=== PATIENT | male | born 1995 | race Two or more races ===

== ENCOUNTER 2023-09-09 13:34 | Emergency (ER) | payer OTHER, SELFPAY ==
[2023-09-09 13:34] VITALS: BP 146/86; PULSE 104; RESP 18; TEMP 36.9; O2SAT 97
[2023-09-09 13:40] VITALS: RESP 20
--- NOTE | 2023-09-09 13:52 | PC.NURSE ---
Provider in room with patient
[2023-09-09] MEDS: LIDOCAINE HCL 1% LOCAL INJ 10 ML VIAL INFILTRATE (14:23)
[2023-09-09] MEDS: KETOROLAC (*BKC) 60 MG/2 ML VIAL IM (14:32)
[2023-09-09] MEDS: TETANUS,DIPHTHERIA,AC PERTUSSIS ADULT 0.5 ML (ADACEL) IM (14:32)
[2023-09-09] MEDS: NEOMYCIN/POLYMYXIN/BACITRACIN OINTMENT PACKET 1 PACKET TOPICAL (14:35)
--- NOTE | 2023-09-09 14:35 | ED.WOUNDLAC ---
HPI - Wound/Laceration General Chief Complaint: Wound/Laceration Stated Complaint: LACERATION Source: patient Mode of arrival: ambulatory Limitations: no limitations History of Present Illness HPI narrative: has a laceration to the pad of his left ring finger gaping not up-to-date with his tetanus currently no numbness or tingling has good range of motion in his left finger and hand. No other injuries noted. Onset (ago): hour(s) Place: work Context: accidental Related Data Home Medications Medication Instructions Recorded Confirmed albuterol sulfate 2.5 mg/3 mL 2.5 mg continuous nebulization 09/09/23 09/09/23 (0.083 %) solution for nebulization DAILY albuterol sulfate 90 mcg/actuation 90 mcg inhalation DAILY 09/09/23 09/09/23 aerosol inhaler budesonide-formoterol HFA 160 160 puff inhalation DAILY 09/09/23 09/09/23 mcg-4.5 mcg/actuation aerosol inhaler (Symbicort) Allergies Allergy/AdvReac Type Severity Reaction Status Date / Time No Known Allergies Allergy Verified 09/09/23 13:54 Review of Systems Review of Systems: All systems reviewed & are unremarkable except as noted in HPI and below PMFSH Past Medical History Medical History Patient denies medical problems Exam Const: General: healthy appearing and no acute distress Nutritional Appearance: well nourished Orientation/consciousness: patient oriented x3 Limitations: no limitations Resp: Effort & Inspection: normal respiratory effort Auscultation: clear to auscultation bilaterally Cardio: Rate: regular rate Rhythm: regular rhythm Skin: Other: laceration to the palmar surface of his left ring finger gaping approximately 2.5cm in length Neuro: General: patient oriented x3 and moves all extremities Extrem: General: normal to inspection Course Vital Signs Vital signs: Vital Signs Temperature 36.9 C 09/09/23 13:34 Pulse Rate 104 H 09/09/23 13:34 Respiratory Rate 18 09/09/23 13:34 Blood Pressure 146/86 H 09/09/23 13:34 Pulse Oximetry 97 09/09/23 13:34 Oxygen Delivery Room Air 09/09/23 13:34 Temperature 36.9 C 09/09/23 13:34 Pulse Rate 104 H 09/09/23 13:34 Respiratory Rate 20 09/09/23 13:40 Blood Pressure 146/86 H 09/09/23 13:34 Pulse Oximetry 97 09/09/23 13:34 Oxygen Delivery Room Air 09/09/23 13:34 Procedures Laceration Laceration 1: Date: 09/09/23 Time: 14:37 Site: hand Side (If applicable): left Size (cm): 2.5 Description: linear Depth: simple, single layer Local Anesthetic: lidocaine 1% Pre-repair: wound explored and irrigated ====== Skin Level ====== Skin layer closed with: vicryl Size (cm): 4-0 Number of sutures: 5 Technique: simple, interrupted ====== Subcutaneous Layer ====== ====== Muscle Layer ====== ====== Tendon Layer ====== Critical Care Time Critical Care Time Critical Care Time: No Discharge Plan Discharge Clinical Impression: Laceration Patient Disposition: Home, Self-Care Condition: Stable Instructions: Antibiotic Form, Laceration (ED) Additional Instructions: Take medicine as prescribed, and follow with primary to have sutures removed in 1 week. Prescriptions: New naproxen 500 mg tablet 500 mg PO BID PRN (Reason: pain) Qty: 14 0RF No Action albuterol sulfate 2.5 mg /3 mL (0.083 %) solution for nebulization 2.5 mg continuous nebulization DAILY albuterol sulfate 90 mcg/actuation HFA aerosol inhaler 90 mcg INHALATION DAILY budesonide-formoterol [Symbicort] 160-4.5 mcg/actuation HFA aerosol inhaler 160 puff INHALATION DAILY Follow-up/Referrals: UNKNOWN,DOCTOR [Primary Care Provider] - Time of Disposition: 14:41
[2023-09-09 14:53] VITALS: BP 146/81; PULSE 78; RESP 20; O2SAT 98
== END 2023-09-09 14:53 | disposition home or self-care (01) ==
LOC: CHSED 14:48
PROVIDERS: Emergency Provider Emergency Medicine; PCP Nurse Practitioner
DX: S61.215A Laceration without foreign body of left ring finger without damage to nail, initial encounter (principal); Z79.51 Long term (current) use of inhaled steroids; W45.8XXA Other foreign body or object entering through skin, initial encounter; Z23 Encounter for immunization
CPT/HCPCS: 12001; 90471; 90715; 96372; 99283; J1885

== ENCOUNTER 2024-03-12 21:44 | Emergency (ER) | payer SELFPAY ==
--- NOTE | ~2024-03-12 | XR_ITS ---
Clinical Indication: Shortness of breath PA and lateral views of the chest: Comparison: None Findings: Questionable subtle 5 mm right midlung nodular opacity. Left lung clear.. Cardiomediastina l silhouette is within normal limits. Bones and soft tissues are unremarkable. Impression: Questionable subtle 5 mm right midlung nodular opacity. Consider chest CT to further evaluate versus follow-up exam. Reviewed, dictated and finalized at location . Impression: Questionable subtle 5 mm right midlung nodular opacity. Consider chest CT to fu rther evaluate versus follow-up exam.
[2024-03-12 21:47] VITALS: BP 117/81; PULSE 90; RESP 18; TEMP 36.7; O2SAT 99
--- NOTE | 2024-03-12 21:53 | ED.URI ---
HPI - URI/Sore Throat General Chief Complaint: Upper Respiratory Infection Stated Complaint: upper respiratory Source: patient Mode of arrival: ambulatory Limitations: no limitations History of Present Illness HPI Narrative: Patient is a 28-year-old male with asthma out of some of his medications and nebulizer tubing. He has been sick for the past few days. No fever. He has been short of breath and coughing. He feels that he has a bronchitis type illness. He has been seeing his child at a children[facility] hospital. MD elicited complaint: cough Pertinent past history: asthma Onset (ago): day(s) (3) Consistency: constant Severity: moderate Pain scale (0-10): 2 Description of mucous: clear and yellow Able to tolerate fluids by mouth: Yes Exacerbating factors: exertion, deep breaths and other ( Out of his home nebulizer tubing and said he came to the ER for tubing as well today) Relieving factors: nothing Context: sick contacts ( child is at a children's hospital and he was there in the past few days) Associated symptoms: shortness of breath Treatments prior to arrival: none Related Data Home Medications Medication Instructions Recorded Confirmed albuterol sulfate 2.5 mg/3 mL 2.5 mg continuous nebulization 09/09/23 03/12/24 (0.083 %) solution for nebulization DAILY albuterol sulfate 90 mcg/actuation 90 mcg inhalation DAILY 09/09/23 03/12/24 aerosol inhaler budesonide-formoterol HFA 160 160 puff inhalation DAILY 09/09/23 03/12/24 mcg-4.5 mcg/actuation aerosol inhaler (Symbicort) Allergies Allergy/AdvReac Type Severity Reaction Status Date / Time ibuprofen AdvReac Nausea Verified 03/12/24 21:52 Review of Systems Review of Systems: All systems reviewed & are unremarkable except as noted in HPI and below Constitutional: Constitutional: Reports no additional constitutional complaints Eyes: Eyes: Reports no additional eye complaints ENT: Reports system reviewed and no additional complaints, except as documented Cardiovascular: Cardiovascular: Reports no additional cardiovascular complaints Respiratory: Respiratory: Reports no additional respiratory complaints Gastrointestinal: Gastrointestinal: Reports no additional gastrointestinal complaints Genitourinary: Genitourinary: Reports no additional male genitourinary complaints Musculoskeletal: Musculoskeletal: Reports no additional musculoskeletal complaints Integumentary/Breasts: Skin/Breast: Reports system reviewed and no additional complaints, except as docu Neurologic: Reports system reviewed and no additional complaints, except as documented Psychiatric: Psychiatric: Reports no additional psychiatric complaints Endocrine: Endocrine: Reports no additional endocrine complaints Hematologic/Lymphatic: Hematologic/Lymphatic: Reports no additional hematologic/lymphatic complaints Allergic/Immunologic: Allergic/Immunologic: Reports no additional allergic/immunologic complaints PMFSH Past Medical History Medical History Patient denies medical problems Exam Const: General: healthy appearing Nutritional Appearance: well nourished Orientation/consciousness: patient oriented x3 HENMT: Head: normal to inspection Ears: external ears normal Face/Nose/Sinus: Normal external nose present Eyes: Conjunctivae: conjunctivae normal Pupils: Equal, round and reactive pupils present EOM: EOMs intact bilaterally Neck: Neck: normal visual inspection Chest: Chest palpation & inspection: normal inspection of the chest Resp: Effort & Inspection: normal respiratory effort and not labored Auscultation: not clear to auscultation bilaterally, crackles on the right at the base, no rales, no rhonchi, no wheezes, breath sounds present and diminished lung sounds bilateral Cardio: Rate: regular rate Rhythm: regular rhythm Heart sounds: no murmurs GI: Inspection: non-distended GI Palp: Yes Soft to palpation and No Tenderness to palpation present (GI) Auscultation: normal bowel sounds : General: Yes bladder normal to palpation Back/Spine/Pelvis: Back: no CVA tenderness Skin: General skin exam: normal color Rashes: no rashes Wounds: no wounds Neuro: General: patient oriented x3 Cranial nerves: Yes Nystagmus not present Speech: normal speech Extrem: General: normal to inspection Psych: Mental Status: mental status grossly normal Affect: normal affect Attitude: cooperative Course Vital Signs Vital signs: Vital Signs Oxygen Delivery Room Air 03/12/24 21:44 Temperature 36.7 C 03/12/24 21:47 Pulse Rate 71 03/12/24 22:31 Respiratory Rate 16 03/12/24 22:31 Blood Pressure 126/82 03/12/24 22:30 Pulse Oximetry 100 03/12/24 22:31 Oxygen Delivery Room Air 03/12/24 22:30 Oxygen Flow Rate 7 03/12/24 22:31 MDM - URI/Sore Throat MDM Narrative Medical decision making narrative: Patient is a 28-year-old male with asthma and out of his medications. We will give treatment and do a chest x-ray. Imaging Data Attestation: I personally reviewed and interpreted this imaging study as follows: Radiologist's impression: Chest x-ray shows some bilateral with right greater than left increased perihilar markings Discharge Plan Discharge Clinical Impression: Asthma exacerbation Qualifiers: Asthma severity: moderate Asthma persistence: unspecified Qualified Code(s): J45.901 - Unspecified asthma with (acute) exacerbation Patient Disposition: Home, Self-Care Condition: Stable Instructions: Antibiotic Form, Asthma (ED) Prescriptions: New azithromycin 500 mg tablet 500 mg PO DAILY 4 Days Qty: 4 0RF albuterol sulfate 90 mcg/actuation HFA aerosol inhaler 2 inh inhalation Q4H PRN (Reason: shortness of breath or wheezing) Qty: 6.7 0RF budesonide-formoterol [Symbicort] 160-4.5 mcg/actuation HFA aerosol inhaler 1 inh inhalation DAILY Qty: 10.2 0RF methylprednisolone [Medrol (Ra)] 4 mg tablets,dose pack See Rx Instructions .ROUTE .COMPLEX Qty: 21 0RF Rx Instructions: orally per package directions No Action albuterol sulfate 2.5 mg /3 mL (0.083 %) solution for nebulization 2.5 mg continuous nebulization DAILY albuterol sulfate 90 mcg/actuation HFA aerosol inhaler 90 mcg INHALATION DAILY budesonide-formoterol [Symbicort] 160-4.5 mcg/actuation HFA aerosol inhaler 160 puff INHALATION DAILY Follow-up/Referrals: UNKNOWN,DOCTOR [Non-Staff] - Time of Disposition: 22:42
[2024-03-12] MEDS: methylPREDNISolone SOD SUCC 125 MG VIAL IM (22:14)
[2024-03-12] MEDS: ALBUTEROL SULFATE NEB 2.5 MG/3 ML INH INHALATION (22:14)
[2024-03-12 22:20] VITALS: BP 122/76; PULSE 83; RESP 16; O2SAT 100
[2024-03-12 22:30] VITALS: BP 126/82; PULSE 71; RESP 16; O2SAT 100
[2024-03-12 22:31] VITALS: PULSE 71; RESP 16; O2SAT 100
[2024-03-12] MEDS: AZITHROMYCIN 250 MG TABLET 500 MG PO (22:58)
== END 2024-03-12 23:03 | disposition home or self-care (01) ==
PROVIDERS: Emergency Provider Emergency Medicine
DX: J45.901 Unspecified asthma with (acute) exacerbation (principal)
CPT/HCPCS: 71046; 96372; 99283; A9270; J2919

== ENCOUNTER 2024-04-07 23:55 | Emergency (ER) | payer OTHER, SELFPAY ==
--- NOTE | ~2024-04-07 | XR_ITS ---
EXAMINATION: XR chest 2V DATE: 04/08/2024 00:20 INDICATION: Right-sided chest pain with cough and wheezing TECHNIQUE: PA and lateral views of the chest were obtained. COMPARISON: Chest radiograph dated 03/12/24 FINDINGS: Persistent nodule in the anterior right midlung zone which given the density relative to size most li raegan represents a calcified granuloma. No other airspace opacities, pulmonary edema, pleural effusion or pneumothorax. The cardiomediastinal silhouette is normal. Visualized bones and soft tissues are u nremarkable. IMPRESSION: 1. No acute cardiopulmonary disease. Reviewed, dictated and finalized at location A. GNER WRITER
[2024-04-07 23:57] VITALS: BP 131/84; PULSE 89; RESP 18; TEMP 36.2; O2SAT 98
--- NOTE | 2024-04-08 00:08 | ED.GENADULT ---
HPI - General Adult General Chief complaint: Upper Respiratory Infection Stated complaint: upper respiratory Source: patient Mode of arrival: ambulatory Limitations: no limitations History of Present Illness HPI narrative: Patient is a 28-year-old white male asthmatic stated he was here on the he thought he might be getting a pneumonia. Patient was in the ED March 12 with the asthma exacerbation complaining of shortness of breath and coughing is out of his asthma medicine and nebulizer tubing.? At that time he had normal vital signs nonlabored breathing it crackles at the right base and bilateral diminished breath sounds. ?Chest x-ray showed a questionable subtle subtle 5 mm right mid lung field nodular opacity consideration was a chest x-ray to further evaluate versus follow-up exam. He is given a Z-Ra albuterol inhaler Symbicort inhaler and a Medrol Dosepak.? Patient states he did not take the last dose of his a Zithromax and he has been abusing his albuterol inhaler taking 2 puffs every 30-45 minutes today.? Been taking Tylenol yesterday but nothing today for pain.? He complains of back right posterior chest pain aggravated by coughing. Otherwise he has been eating drinking voiding and stooling fine without any fever dizziness lightheadedness swelling lumps or bumps rash or itching bleeding or bruising or any other complaints. Related Data Allergies Allergy/AdvReac Type Severity Reaction Status Date / Time ibuprofen AdvReac Nausea Verified 04/08/24 00:07 Review of Systems Review of Systems: All systems reviewed & are unremarkable except as noted in HPI and below PMFSH Past Medical History Medical History Patient denies medical problems Exam Narrative: White male patient with no apparent distress.? Did have a spasm of cough with some back pain at 1 point. Head normocephalic, atraumatic.? Eyes conjunctiva pink sclera nonicteric.? Extraocular movements are intact.? Ears externally normal.? Oropharynx is clear with moist mucous membranes without exudates.? Neck is supple nontender no lymphadenopathy.? Back is nontender.? Lungs are clear With fair air exchange no wheezes rales or rhonchi.? Heart is regular rate and rhythm without murmurs gallops or rubs.? Chest wall nontender. Abdomen is soft and nontender no hepatosplenomegaly or masses no CVA tenderness no abdominal bruits.? Extremities no cyanosis clubbing or edema.? Skin is warm and dry without rashes or lesions.? Neurological patient is alert and oriented x4.? Motor and sensory grossly intact.? Gait is normal. Course Vital Signs Vital signs: Vital Signs Oxygen Delivery Room Air 04/07/24 23:55 Temperature 36.2 C L 04/07/24 23:57 Pulse Rate 89 04/07/24 23:57 Respiratory Rate 18 04/07/24 23:57 Blood Pressure 131/84 04/07/24 23:57 Pulse Oximetry 99 04/08/24 01:19 Oxygen Delivery Room Air 04/07/24 23:57 Oxygen Flow Rate 6 04/08/24 01:07 Medical Decision Making MDM Narrative Medical decision making narrative: ?Patient placed in room: 2 with his ? History and physical was performed. all patient's PERC criteria negative his score 0 no further testing for PE is indicated Independent Historian: had nothing to add External Source Review: last ED visit were reviewed as were his chest x-ray report an actual film Differential Dx includes but not limited to: pneumonia PE pleuritis muscle pain asthma exacerbation Medications were Reviewed: home meds reviewed Medications given: DuoNebs prednisone 60 mg Independently Interpreted by me: chest x-ray showed no active disease as independently interpreted by me. Shared decision Making: Evaluation was discussed with patient his all questions were asked and answered and patient reluctant to quit smoking, quit vaping, and quit smoking marijuana. Will give him a longer tapering course of prednisone. Hopefully patient will follow-up with 1 of the physicians locally. Social Situation Impacting Patients Care: Patient continues to vape smoke and smoke marijuana DISCHARGE DIAGNOSIS: asthma exacerbation DISPOSITION : discharge home CONDITION AT DISCHARGE: stable Vital Signs Vital Signs: Vital Signs Oxygen Delivery Room Air 04/07/24 23:55 Temperature 36.2 C L 04/07/24 23:57 Pulse Rate 89 04/07/24 23:57 Respiratory Rate 18 04/07/24 23:57 Blood Pressure 131/84 04/07/24 23:57 Pulse Oximetry 99 04/08/24 01:19 Oxygen Delivery Room Air 04/07/24 23:57 Oxygen Flow Rate 6 04/08/24 01:07 Discharge Plan Discharge Clinical Impression: Asthma exacerbation, Nicotine addiction, Marijuana abuse Patient Disposition: Home, Self-Care Condition: Stable Instructions: Asthma in Children (ED), How to Use a Nebulizer (ED) Additional Instructions: take prednisone 5 mg tablet: 8 tablets daily for 5 days then 4 tablets daily for 5 days, then 2 tablets daily for 5 days, then 1 tablet daily for 5 days. Stop smoking and vaping and smoking marijuana. Take Tylenol and/or Naprosyn [id number] and or soak in warm tub for pain as needed. Prescriptions: New prednisone 5 mg tablet 5 mg PO DIRECTED Qty: 75 0RF Rx Instructions: see taper instructions: Take 40 mg daily for 5 days then 20 mg daily for 5 days then 10 mg daily for 5 days and 5 mg daily for 5 days No Action albuterol sulfate 90 mcg/actuation HFA aerosol inhaler 2 inh inhalation Q4H PRN (Reason: shortness of breath or wheezing) Qty: 6.7 0RF budesonide-formoterol [Symbicort] 160-4.5 mcg/actuation HFA aerosol inhaler 1 inh inhalation DAILY Qty: 10.2 0RF Follow-up/Referrals: UNKNOWN,DOCTOR [Primary Care Provider] - Stand Alone Forms: Work/School Release IP Time of Disposition: 01:39
[2024-04-08] MEDS: KETOROLAC 30 MG/ML VIAL (*BKC) IM (01:00)
[2024-04-08] MEDS: IPRATROPIUM 0.5 MG/ALBUTEROL SULFATE 2.5 MG AMPUL.NEB 3 ML INHALATION (01:01)
[2024-04-08] MEDS: predniSONE 20 MG TABLET 60 MG PO (01:02)
[2024-04-08 01:07] VITALS: O2SAT 98
[2024-04-08 01:17] VITALS: O2SAT 99
[2024-04-08 01:19] VITALS: O2SAT 99
[2024-04-08 01:45] VITALS: BP 132/82; PULSE 92; RESP 17; TEMP 36.8; O2SAT 99
== END 2024-04-08 01:45 | disposition home or self-care (01) ==
PROVIDERS: Emergency Provider Emergency Medicine
DX: J45.901 Unspecified asthma with (acute) exacerbation (principal); F12.10 Cannabis abuse, uncomplicated
CPT/HCPCS: 71046; 94640; 96372; 99283; J1885; J7512

== ENCOUNTER 2024-05-03 05:28 | Emergency (ER) | payer OTHER, SELFPAY ==
[2024-05-03 05:28] VITALS: BP 127/85; PULSE 102; RESP 24; TEMP 36.6; O2SAT 95
--- NOTE | 2024-05-03 05:45 | ED_ITS ---
HPI - Asthma General Chief Complaint: Asthma Stated Complaint: Asthma Time Seen by Provider: 05/03/24 05:43 History of Present Illness HPI Narrative: Pt presents with SOB/wheezing. Pt is asthmatic and is out of inhaler and does not have a PCP yet locally. Pt denies cough or fever. Related Data Allergies Allergy/AdvReac Type Severity Reaction Status Date / Time ibuprofen AdvReac Nausea Verified 05/03/24 05:54 Review of Systems Review of Systems: All systems reviewed & are unremarkable except as noted in HPI and below PMFSH Past Medical History Medical History Patient denies medical problems Exam Const: General: healthy appearing and no acute distress Nutritional Appearance: well nourished Orientation/consciousness: patient oriented x3 Limitations: no limitations Chest: Chest palpation & inspection: normal inspection of the chest Resp: Effort & Inspection: normal respiratory effort and tachypneic Auscultation: wheezes Cardio: Rate: regular rate Rhythm: regular rhythm GI: Auscultation: normal bowel sounds Skin: General skin exam: normal color Wounds: no wounds Neuro: General: patient oriented x3, moves all extremities and no focal motor deficits Speech: normal speech Extrem: General: normal to inspection and no clubbing, cyanosis or edema Psych: Mental Status: mental status grossly normal Affect: normal affect Attitude: cooperative Course Vital Signs Vital signs: Vital Signs Temperature 97.9 F 05/03/24 05:28 Pulse Rate 102 H 05/03/24 05:28 Respiratory Rate 24 H 05/03/24 05:28 Blood Pressure 127/85 05/03/24 05:28 Pulse Oximetry 95 05/03/24 05:28 Oxygen Delivery Room Air 05/03/24 05:28 Temperature 97.9 F 05/03/24 05:28 Pulse Rate 102 H 05/03/24 05:28 Respiratory Rate 24 H 05/03/24 05:28 Blood Pressure 127/85 05/03/24 05:28 Pulse Oximetry 95 05/03/24 05:28 Oxygen Delivery Room Air 05/03/24 05:28 MDM - Asthma MDM Narrative Medical decision making narrative: Pt presents with wheezing and is out of meds. Will give neb here and refill rx and likely also give short run of prednisone. Pt better after neb. home on inhaler and prednisone. Discharge Plan Discharge Clinical Impression: Asthma with acute exacerbation Patient Disposition: Home, Self-Care Condition: Improved Instructions: Antibiotic Form, Asthma (ED) Patient Language: Luxembourgish Prescriptions: New prednisone 50 mg tablet 50 mg PO DAILY Qty: 5 0RF albuterol sulfate [Ventolin HFA] 90 mcg/actuation HFA aerosol inhaler 2 puff inhalation QID PRN (Reason: shortness of breath or wheezing) Qty: 8.5 0RF budesonide-formoterol [Breyna] 80-4.5 mcg/actuation HFA aerosol inhaler 1 inh inhalation DAILY Qty: 10.2 0RF (DME) nebulizer and compressor Device See Rx Instructions .Route Qty: 1 0RF Rx Instructions: As directed albuterol sulfate 2.5 mg/0.5 mL solution for nebulization 5 mg inhalation QID PRN (Reason: shortness of breath or wheezing) Qty: 30 0RF No Action albuterol sulfate 90 mcg/actuation HFA aerosol inhaler 2 inh inhalation Q4H PRN (Reason: shortness of breath or wheezing) Qty: 6.7 0RF budesonide-formoterol [Symbicort] 160-4.5 mcg/actuation HFA aerosol inhaler 1 inh inhalation DAILY Qty: 10.2 0RF Follow-up/Referrals: Jose Munoz DO [Physician] - UNKNOWN,DOCTOR [Primary Care Provider] -
[2024-05-03] MEDS: IPRATROPIUM 0.5 MG/ALBUTEROL SULFATE 2.5 MG AMPUL.NEB 3 ML INHALATION (05:48)
[2024-05-03 05:58] VITALS: PULSE 84; RESP 20; O2SAT 97
[2024-05-03] MEDS: ACETAMINOPHEN 325 MG TABLET 650 MG PO (06:02)
[2024-05-03 06:08] VITALS: BP 120/91; PULSE 85; RESP 18; O2SAT 97
[2024-05-03 06:34] VITALS: BP 107/74; PULSE 81; RESP 20; O2SAT 97
== END 2024-05-03 07:05 | disposition home or self-care (01) ==
PROVIDERS: Emergency Provider Emergency Medicine
DX: J45.901 Unspecified asthma with (acute) exacerbation (principal)
CPT/HCPCS: 99283; A9270

== ENCOUNTER 2024-07-11 01:11 | Emergency (ER) | payer OTHER, SELFPAY ==
--- OUTSIDE RECORDS SUMMARY | 2024-07-11 01:14 | XMS_ITS | Clinical Summary ---
Author Organization [facility] Address [address] [place] [address] Care Team Providers Care [facility] Name Role Phone None, Provider Primary Care Provider Nicola Hicks MD Unavailable [phone] Allergies Active Allergy Reactions Criticality Noted Date Comments Ibuprofen Vomiting 09/09/2023 Medications albuterol (ACCUNEB) 0.63 MG/3ML nebulizer solution Take 1 ampule by nebulization every 6 (six) hours as needed for Wheezing. Active azithromycin (ZITHROMAX Z-CARMEN) 250 MG tablet Take 2 tabs on Day 1, then 1 tab on days 2-5 6 tablet 3 Active methylPREDNISol one, CARMEN, (MEDROL DOSEPAK) 4 MG tablet Take as directed 1 each 3 Active albuterol (PROVENTIL) (2.5 MG/3ML) 0.083% nebulizer solution Take 3 mLs (2.5 mg total) by nebulization every 4 (four) hours as needed for Wheezing. 75 mL 3 Active albuterol (ACCUNEB) 0.63 MG/3ML nebulizer solution Take 3 mLs (0.63 mg total) by nebulization every 6 (six) hours as needed for Wheezing. 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 [employer] Gender Identity Not on file Sexual Orientation Not on file Last Filed Vital Signs Vital Sign Reading Time Taken Comments Blood Pressure 149/86 09/09/2023 9:40 PM CDT Pulse 94 09/09/2023 9:40 PM CDT Temperature 36.3 C (97.4 F) 09/09/2023 9:40 PM CDT Respiratory Rate 24 09/09/2023 9:40 PM CDT Oxygen Saturation 100% 09/09/2023 9:40 PM CDT Inhaled Oxygen Concentration - - Weight 75 kg (165 lb 5.5 oz) 09/09/2023 9:45 PM CDT Height 160 cm (5' 3 ) 09/09/2023 9:45 PM CDT Body Mass Index 29.29 09/09/2023 9:45 PM CDT Plan of Treatment Health Maintenance Due Date Last Done Comments Annual Physical 2000 Pneumococcal Vaccine: Pediatrics (0 to 5 Years) and At-Risk Patients (6 to 64 Years) (1 of 2 - PCV) 2003 DTaP, Tdap and Td Vaccines (6 - Tdap) 2008 01/31/2003, 08/27/1998, 02/14/1998, Additional history exists Hepatitis C 2015 COVID-19 Vaccine ( season) 2024 Influenza Adult (#1) 2024 Hepatitis B Vaccines Completed 08/27/1998, 1997, 1997 HPV Vaccines Aged Out No longer eligi ble based on patient's age to complete this topic Meningococcal B Vaccine Aged Out No l onger eligible based on patient's age to complete this topic Meningococcal Vaccine Aged Out No halie dinah eligible based on patient's age to complete this topic RSV Immunizations Under 20 Months Aged Out No longer eligible based on patient's age to complete this topic Insurance [employer] Care Teams [facility] Relationship Specialty Start Date End Date None, Provider, PCP - General UNKNOWN PHYSICIAN SPECIALTY 09/09/23 Nicola Harris MD [address] [place] [id number] FAMILY PRACTICE 09/09/23
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
[2024-07-11 01:16] VITALS: BP 114/86; PULSE 99; RESP 24; TEMP 36.6; O2SAT 99
--- NOTE | 2024-07-11 01:18 | ED_ITS ---
HPI - Asthma General Chief Complaint: Asthma Stated Complaint: SOB, dizzy, headache Time Seen by Provider: 07/11/24 01:13 Source: patient Mode of arrival: ambulatory Limitations: no limitations History of Present Illness HPI Narrative: This is a 29-year-old male with history of with multiple prior exacerbations who presents the emergency department complaining wheezing and shortness of breath. Patient states this is similar to prior asthma exacerbations. He states in the past week he has had a viral upper respiratory infection from his children. He denies chest pain, fevers, chills, loss of consciousness, nausea or vomiting. He has no other complaints at this time. Related Data Allergies Allergy/AdvReac Type Severity Reaction Status Date / Time ibuprofen AdvReac Nausea Verified 05/03/24 05:54 Review of Systems Review of Systems: All systems reviewed & are unremarkable except as noted in HPI and below PMFSH Past Medical History Medical History Asthma exacerbation Surgical History Surgical History No significant past surgical history Social History Social History Smoking status: Former smoker Alcohol intake: current Substance use: never Exam Narrative: GENERAL: Well-developed, well-nourished, and in no acute distress. HEAD: Normocephalic, atraumatic. EYES: PERRLA and EOMI. CHEST: Expiratory wheeze noted in the bilateral posterior lung talavera. No respiratory distress. No rales or rhonchi HEART: Regular rate and rhythm. No murmur heard. Normal peripheral pulses. ABDOMEN: Soft, nontender, nondistended, normal active bowel sounds. EXTREMITIES: Normal range of motion. No edema. SKIN: Warm, dry, no rash. NEURO: Alert and oriented x3. No focal deficit. Moving all 4 limbs spontaneously PSYCH: Normal mood and affect. Course Course Emergency Course: 01:54 - On re-evaluation after DuoNeb, the patient states he feels significantly improved and is comfortable with discharge. His wheezing has resolved. Will discharge her with refills albuterol and a prednisone course. I discussed the findings and recommendations with The patient. Discussed return and emergency precautions including signs/symptoms of ACS and respiratory distress. The patient voiced understanding and agreement with the plan. All questions answered to his satisfaction. Vital Signs Vital signs: Vital Signs Temperature 97.9 F 07/11/24 01:16 Pulse Rate 99 07/11/24 01:16 Respiratory Rate 24 H 07/11/24 01:16 Blood Pressure 114/86 07/11/24 01:16 Pulse Oximetry 99 07/11/24 01:16 Oxygen Delivery Room Air 07/11/24 01:16 Temperature 97.9 F 07/11/24 01:16 Pulse Rate 99 07/11/24 01:16 Respiratory Rate 24 H 07/11/24 01:16 Blood Pressure 114/86 07/11/24 01:16 Pulse Oximetry 99 07/11/24 01:16 Oxygen Delivery Room Air 07/11/24 01:16 MDM - Asthma MDM Narrative Medical decision making narrative: plan: Labs, steroids reassess Differential Diagnosis Differential diagnosis: Likely Acute exacerbation, Acute asthmatic bronchitis and other ( viral URI, other) Discharge Plan Discharge Clinical Impression: Asthma with acute exacerbation Qualifiers: Asthma severity: moderate Asthma persistence: persistent Qualified Code(s): J45.41 - Moderate persistent asthma with (acute) exacerbation Patient Disposition: Home, Self-Care Condition: Stable Instructions: Antibiotic Form Additional Instructions: You were seen in the emergency department. You were given a nebulizer treatment with improvement. I recommend a short course of steroids and follow- up with a primary care doctor. If you develop chest pain, new or worsening shortness of breath, or if you have other emergent concerns for life, limb, or eyesight, return to the emergency department. Patient Language: Singaporean Prescriptions: New prednisone 20 mg tablet 20 mg PO DAILY Qty: 4 0RF Continued albuterol sulfate 90 mcg/actuation HFA aerosol inhaler 2 inh inhalation Q4H PRN (Reason: shortness of breath or wheezing) Qty: 6.7 2RF albuterol sulfate 2.5 mg/0.5 mL solution for nebulization 5 mg inhalation QID PRN (Reason: shortness of breath or wheezing) Qty: 30 0RF budesonide-formoterol [Symbicort] 160-4.5 mcg/actuation HFA aerosol inhaler 1 inh inhalation DAILY Qty: 10.2 0RF No Action albuterol sulfate [Ventolin HFA] 90 mcg/actuation HFA aerosol inhaler 2 puff inhalation QID PRN (Reason: shortness of breath or wheezing) Qty: 8.5 0RF budesonide-formoterol [Breyna] 80-4.5 mcg/actuation HFA aerosol inhaler 1 inh inhalation DAILY Qty: 10.2 0RF (DME) nebulizer and compressor Device See Rx Instructions .Route Qty: 1 0RF Rx Instructions: As directed Follow-up/Referrals: Flavio Kelly M.D. [Primary Care Provider] - 1 Week Time of Disposition: 01:55
[2024-07-11] MEDS: predniSONE 20 MG TABLET 60 MG PO (01:29)
[2024-07-11] MEDS: IPRATROPIUM 0.5 MG/ALBUTEROL SULFATE 2.5 MG AMPUL.NEB 3 ML INHALATION (01:30)
[2024-07-11 01:40] VITALS: PULSE 88; RESP 24; O2SAT 98
--- OUTSIDE RECORDS SUMMARY | 2024-07-11 01:47 | XMS_ITS | Clinical Summary ---
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
--- OUTSIDE RECORDS SUMMARY | 2024-07-11 01:47 | XMS_ITS | Continuity of Care Document ---
Author Organization [employer] [facility] Address [address] [place] [address] Phone Care Team Providers Care Harvest Worker Fruit Name Role Phone Rubén Rea MD Unavailable [...] Diagnoses Date Provider Providers Copied on Encounter [facility], [address] [place] [address], [facility], tel: [phone] [facility] No Information 3 Álvaro Montana. [address] [place] [address], [address] [place] [address]. tel: [phone] [facility], [address] [place] [address], [facility], tel:[phone] [facility] No Information 2 Álvaro Montana. [address] [place] [address], [facility], . tel: [facility], [address] [place] [address], [facility], tel: [phone] [facility] No Information 2 Álvaro Montana. [address] [place] [address], [facility], . tel: [phone] [facility], [address] [place] [address], [facility], tel: [phone] [facility] No Information 1 Adolfoyasir Rubén. [address] [place] [address], [facility], . tel: [phone] PREV VISIT, EST, AGE 5-11 [facility], [address] [place] [address], [facility], tel: [phone] [facility] work note (chief complaint) Gastroenteritis Mood disorder 1 No Information PHONE E/M BY PHYS 11-20 MIN [facility], [address] [place] [address], [facility], tel: [phone] [facility] discuss medication (chief complaint) Mood disorder 1 Álvaro Montana. [address] [place] [address], [facility], . tel:[phone] PHONE E/M BY PHYS 11-20 MIN [facility], [address] [place] [address], [facility], tel: [phone] [facility] Medication follow up. (chief complaint) Mood disorder 3 0 Álvaro Montana. [address] [place] [address], [facility], . tel:[phone] OFFICE/OUTPA TIENT VISIT, [facility], [address] [place] [address], [facility], tel:[phone] [facility] 2 wk f/u (chief complaint) Mood disorder Jan- 0 Álvaro Montana. [address] [place] [address], [facility], . tel:[phone] OFFICE/OUTPA TIENT VISIT, [facility], [address] [place] [address], [facility], tel:[phone] [facility] F/U MED (chief complaint) Bipolar disorder, current episode mixed, mildMild asthma, unspecified whether complicated, unspecified whether persistentEncou nter for screening for cardiovascular disordersEncoun ter for screening for diabetes mellitus 0 Álvaro Montana. [address] [place] [address], [facility], . tel:[phone] [facility], [address] [place] [address], [facility], tel: [phone] [facility] No Information 0 Álvaro Montana. [address] [place] [address], [facility], . tel:[phone] OFFICE/OUTPA TIENT VISIT, [facility], [address] [place] [address], [facility], tel: [phone] [facility] 2 wk f/u (chief complaint) Bipolar disorder, current episode mixed, mild Feb- 0 Álvaro Montana. [address] [place] [address], [facility], [place]. tel:[phone] OFFICE/OUTPA TIENT VISIT, [facility], [address] [place] [address], [facility], tel:[phone] [facility] CHECK UP (chief complaint) Bipolar disorder, current episode mixed, mildMild asthma, unspecified whether complicated, unspecified whether persistentInsom nino, unspecified typeNicotine dependence, cigarettes, uncomplicatedDe ntal cariesHistory of methamphetamine abuse 0 Álvaro Montana. [address] [place] [address], [place], [address], [place]. [phone] OFFICE/OUTPA TIENT VISIT, [facility], [address] [place] [address], [place], [address], [place] tel:[phone] [facility] Establish Care (chief complaint) AsthmaNicotine dependence, cigarettes, [...] stroke Payers Payer name Insurance type Covered republican ID Authoriza tion(s) No Information Social History [...] Now here needing note to RTW at [facility] in [place]. Discussed with pt the need to be [...] the location of this Provider is at [address] The people participating in this Telemedicine [...] the location of this Provider is at [address]. The people participating in this Telemedicine were the patient , myself, LOCAL INTERMODAL TRUCK DRIVER Alfa Diaz and my nursing staff. The [...] had started a new job at [facility] [employer]. He states that he is working multiple [...] office. Patient states that he moved to [place] which is about half an hour from [...] would like to have this faxed to [facility]. 2 wk f/u Patient is F/U [...] a couple weeks. CHECK UP Patient is [facility] primary care to Dr. Rea. He has been seen here int he past but has not been compliant with treatment and follow up.Patient was seen in this office few years ago and has been back in this area. He was diagnosed to have Bipolar disorder and has been hospitalized 2X at [facility]. At the time, he was using Meth. [...] Establish Care Recently moved [place] from [place]. Has moved around a lot. Is on [...] during the day.Would like to join the [employer], but does not have a high school diploma.Discussed how and where to earn [employer] today to get established. Hx of asthma, [...] to Encounter for screening for diabetes mellitus Goal of treatment di scussed, observe for [...] o Bipolar disorder, current episode mixed, mild Avoid [...] to Encounter for screening for cardiovascular disorders Goal of treatment di scussed, observe for [...] o Bipolar disorder, current episode mixed, mild Encouraged coping ac tivities, counseling Related to Bipolar disorder, current episode mixed, mild Lamotrigine and duloxetine start ed Related to Bipolar disorder, current episode mixed, mild Follow up in two weeks Related t o Bipolar disorder, current episode mixed, mild Avoid respiratory ir ritants, smoking Related to Mild asthma, unspecified whether complicated, unspecified whether persistent Observe for worsenin g signs or symptoms Related to Mild asthma, unspecified whether complicated, unspecified whether persistent Use medications as i nstructed, observe for side effects Related to Mild asthma, unspecified whether complicated, unspecified whether persistent Rest, Proper nutriti on and activity. Weight management Related to Insomnia, unspecified type Consider Gabapentin vs Trazodone Related to Insomnia, unspecified type Observe for persiste nt or worsening symptoms Related to Insomnia, unspecified type Illness associated w ith continuing use discussed Related to Nicotine dependence, cigarettes, uncomplicated Contact Dental school Related to Dental caries Observe for s/s of emergency Rel ated to Dental caries Discussed the import ance of avoidance Related to History of methamphetamine abuse Illness associated w ith continuing use discussed Related to History of methamphetamine abuse Goal of treatment di scussed, observe for suicidal thoughts Related to Bipolar disorder, current episode mixed, mild Observe for medicati on side effect, Observe for worsening s/s Related to Bipolar disorder, current episode mixed, mild Refilled inhalers. D iscussed proper use Related to Asthma [facility] Related to Dental caries Assessments Type Assessment Date No Information Patient Care Teams Name Effective Dates (start - stop) Status Members No Information
[2024-07-11 01:50] VITALS: PULSE 82; RESP 20; O2SAT 99
[2024-07-11 02:00] VITALS: BP 123/70; PULSE 80; RESP 20; TEMP 36.6; O2SAT 99
== END 2024-07-11 02:00 | disposition home or self-care (01) ==
LOC: CHSED 01:45
PROVIDERS: Emergency Provider Preventive Medicine Aerospace Medicine; PCP Family Medicine
DX: J45.41 Moderate persistent asthma with (acute) exacerbation (principal); Z87.891 Personal history of nicotine dependence
CPT/HCPCS: 94640; 99283; J7512

== ENCOUNTER 2024-08-20 16:31 | Emergency (ER) | payer OTHER, SELFPAY ==
--- NOTE | ~2024-08-20 | XR_ITS ---
CHEST RADIOGRAPH, PA AND LATERAL CLINICAL HISTORY: sob/ intermittent Lt. sided chest pain . COMPARISON: 04/08/2024 TECHNIQUE: PA and lateral views of the chest. FINDINGS The cardiomediastinal silhouette is unremarkable. The lungs are clear. IMPRESSION: No focal infiltrate or effusion. Reviewed, dictated and finalized at location A.
[2024-08-20 16:32] VITALS: BP 130/88; PULSE 98; RESP 20; TEMP 36.3; O2SAT 97
--- NOTE | 2024-08-20 16:33 | ED.SOB ---
HPI - SOB/Dyspnea General Chief Complaint: Shortness of Breath/Dyspnea Stated Complaint: asthma Time Seen by Provider: 08/20/24 16:32 Source: patient and family Mode of arrival: ambulatory Limitations: no limitations History of Present Illness HPI Narrative: patient is a 29-year-old male who is currently homeless and not seeing a primary doctor and not using his Symbicort inhaler due to no refills here with asthma exacerbation. He is short of breath without chest pain. He just has his albuterol inhaler. MD elicited complaint: shortness of breath and cough Pertinent past history: asthma Onset (ago): day(s) ( Two) Context: other ( patient has asthma baseline and it has flared that he is off his Symbicort at this time and seasonal changes) Timing: constant Severity: moderate Exacerbating factors: nothing Relieving factors: bronchodilators and medication Known history of: asthma Associated symptoms: denies other symptoms Treatment prior to arrival: none Related Data Home oxygen amount: none Allergies Allergy/AdvReac Type Severity Reaction Status Date / Time ibuprofen AdvReac Nausea Verified 05/03/24 05:54 Review of Systems Review of Systems: All systems reviewed & are unremarkable except as noted in HPI and below Constitutional: Constitutional: Reports no additional constitutional complaints Eyes: Eyes: Reports no additional eye complaints ENT: Reports system reviewed and no additional complaints, except as documented Cardiovascular: Cardiovascular: Reports no additional cardiovascular complaints Respiratory: Respiratory: Reports no additional respiratory complaints Gastrointestinal: Gastrointestinal: Reports no additional gastrointestinal complaints Genitourinary: Genitourinary: Reports no additional male genitourinary complaints Musculoskeletal: Musculoskeletal: Reports no additional musculoskeletal complaints Integumentary/Breasts: Skin/Breast: Reports system reviewed and no additional complaints, except as docu Neurologic: Reports system reviewed and no additional complaints, except as documented Psychiatric: Psychiatric: Reports no additional psychiatric complaints Endocrine: Endocrine: Reports no additional endocrine complaints Hematologic/Lymphatic: Hematologic/Lymphatic: Reports no additional hematologic/lymphatic complaints Allergic/Immunologic: Allergic/Immunologic: Reports no additional allergic/immunologic complaints [facility] Past Medical History Medical History Asthma exacerbation Surgical History Surgical History No significant past surgical history Social History Social History Smoking status: Former smoker Alcohol intake: current Substance use: never Exam Const: General: healthy appearing Nutritional Appearance: well nourished Orientation/consciousness: patient oriented x3 Limitations: no limitations HENMT: Head: normal to inspection Ears: external ears normal Face/Nose/Sinus: Normal external nose present Eyes: Conjunctivae: conjunctivae normal Pupils: Equal, round and reactive pupils present EOM: EOMs intact bilaterally Neck: Neck: normal visual inspection Chest: Chest palpation & inspection: normal inspection of the chest Resp: Effort & Inspection: normal respiratory effort, not labored, no retractions, not tachypneic and no use of accessory muscles Auscultation: not clear to auscultation bilaterally, no crackles, no rales, rhonchi, wheezes, breath sounds present and diminished lung sounds Other: bilaterally Cardio: Rate: regular rate Rhythm: regular rhythm Heart sounds: no murmurs GI: Inspection: non-distended GI Palp: Yes Soft to palpation and No Tenderness to palpation present (GI) Auscultation: normal bowel sounds : General: Yes bladder normal to palpation Back/Spine/Pelvis: Back: no CVA tenderness Skin: General skin exam: normal color Rashes: no rashes Wounds: no wounds Neuro: General: patient oriented x3 Cranial nerves: Yes Nystagmus not present Speech: normal speech Gait exam (Neuro): Normal gait present Extrem: General: normal to inspection Psych: Mental Status: mental status grossly normal Affect: normal affect Attitude: cooperative Course Vital Signs Vital signs: Vital Signs Oxygen Delivery Room Air 08/20/24 16:31 Temperature 36.3 C L 08/20/24 16:32 Pulse Rate 98 08/20/24 16:32 Respiratory Rate 20 08/20/24 16:32 Blood Pressure 130/88 08/20/24 16:32 Pulse Oximetry 97 08/20/24 16:32 Oxygen Delivery Room Air 08/20/24 16:32 MDM - SOB/Dyspnea MDM Narrative Medical decision making narrative: patient is a 29-year-old male with asthma here with an exacerbation. We will get DuoNebs and steroids IM at this time. We will refill his Symbicort. We will do a COVID test panel. We will do a chest x-ray. Lab Data Attestation: I reviewed the patient's lab results. Labs: Lab Results 08/20/24 Range/Units 16:43 Influenza A (RT-PCR) Pending Influenza B (RT-PCR) Pending RSV (RT-PCR) Pending SARS-CoV-2 RNA (RT-PCR) Pending Imaging Data Attestation: I personally reviewed and interpreted this imaging study as follows: Radiologist's impression: Chest x-ray is negative for acute process Discharge Plan Discharge Clinical Impression: Asthma exacerbation Qualifiers: Asthma severity: moderate Asthma persistence: unspecified Qualified Code(s): J45.901 - Unspecified asthma with (acute) exacerbation Patient Disposition: Home, Self-Care Condition: Improved Instructions: Antibiotic Form, Asthma (ED) Patient Language: Gambian Prescriptions: New budesonide-formoterol [Symbicort] 80-4.5 mcg/actuation HFA aerosol inhaler 2 puff inhalation BID Qty: 10.2 0RF azithromycin 250 mg tablet See Rx Instructions .ROUTE .COMPLEX Qty: 6 0RF Rx Instructions: For 250 mg dose pack: take 500 mg today (day 1), then 250 mg for 4 days (days 2-5) No Action albuterol sulfate [Ventolin HFA] 90 mcg/actuation HFA aerosol inhaler 2 puff inhalation QID PRN (Reason: shortness of breath or wheezing) Qty: 8.5 0RF budesonide-formoterol [Breyna] 80-4.5 mcg/actuation HFA aerosol inhaler 1 inh inhalation DAILY Qty: 10.2 0RF (DME) nebulizer and compressor Device See Rx Instructions .Route Qty: 1 0RF Rx Instructions: As directed albuterol sulfate 90 mcg/actuation HFA aerosol inhaler 2 inh inhalation Q4H PRN (Reason: shortness of breath or wheezing) Qty: 6.7 2RF albuterol sulfate 2.5 mg/0.5 mL solution for nebulization 5 mg inhalation QID PRN (Reason: shortness of breath or wheezing) Qty: 30 0RF budesonide-formoterol [Symbicort] 160-4.5 mcg/actuation HFA aerosol inhaler 1 inh inhalation DAILY Qty: 10.2 0RF prednisone 20 mg tablet 20 mg PO DAILY Qty: 4 0RF Follow-up/Referrals: Lew Dunn MD [Primary Care Provider] - Time of Disposition: 17:25
--- OUTSIDE RECORDS SUMMARY | 2024-08-20 16:33 | XMS_ITS | Continuity of Care Document ---
Author Organization [employer] [facility] Address [address] [place] [address] Phone Care Team Providers Care Radio Officer Name Role Phone Rubén Rea MD Unavailable [...] Diagnoses Date Provider Providers Copied on Encounter [facility], [address] [place] [address], [facility], tel: [phone] [facility] No Information 3 Álvaro Montana. [address] [place] [address], [address] [place] [address]. tel: [phone] [facility], [address] [place] [address], [facility], tel:[phone] [facility] No Information 2 Álvaro Montana. [address] [place] [address], [facility], . tel: [facility], [address] [place] [address], [facility], tel: [phone] [facility] No Information 2 Álvaro Montana. [address] [place] [address], [facility], . tel: [phone] [facility], [address] [place] [address], [facility], tel: [phone] [facility] No Information 1 Adolfoyasir Rubén. [address] [place] [address], [facility], . tel: [phone] PREV VISIT, EST, AGE 5-11 [facility], [address] [place] [address], [facility], tel: [phone] [facility] work note (chief complaint) Gastroenteritis Mood disorder 1 No Information PHONE E/M BY PHYS 11-20 MIN [facility], [address] [place] [address], [facility], tel: [phone] [facility] discuss medication (chief complaint) Mood disorder 1 Álvaro Montana. [address] [place] [address], [facility], . tel:[phone] PHONE E/M BY PHYS 11-20 MIN [facility], [address] [place] [address], [facility], tel: [phone] [facility] Medication follow up. (chief complaint) Mood disorder 3 0 Álvaro Montana. [address] [place] [address], [facility], . tel:[phone] OFFICE/OUTPA TIENT VISIT, [facility], [address] [place] [address], [facility], tel:[phone] [facility] 2 wk f/u (chief complaint) Mood disorder Jan- 0 Álvaro Montana. [address] [place] [address], [facility], . tel:[phone] OFFICE/OUTPA TIENT VISIT, [facility], [address] [place] [address], [facility], tel:[phone] [facility] F/U MED (chief complaint) Bipolar disorder, current episode mixed, mildMild asthma, unspecified whether complicated, unspecified whether persistentEncou nter for screening for cardiovascular disordersEncoun ter for screening for diabetes mellitus 0 Álvaro Montana. [address] [place] [address], [facility], . tel:[phone] [facility], [address] [place] [address], [facility], tel: [phone] [facility] No Information 0 Álvaro Montana. [address] [place] [address], [facility], . tel:[phone] OFFICE/OUTPA TIENT VISIT, [facility], [address] [place] [address], [facility], tel: [phone] [facility] 2 wk f/u (chief complaint) Bipolar disorder, current episode mixed, mild Feb- 0 Álvaro Montana. [address] [place] [address], [facility], [place]. tel:[phone] OFFICE/OUTPA TIENT VISIT, [facility], [address] [place] [address], [facility], tel:[phone] [facility] CHECK UP (chief complaint) Bipolar disorder, current episode mixed, mildMild asthma, unspecified whether complicated, unspecified whether persistentInsom nino, unspecified typeNicotine dependence, cigarettes, uncomplicatedDe ntal cariesHistory of methamphetamine abuse 0 Álvaro Montana. [address] [place] [address], [place], [address], [place]. [phone] OFFICE/OUTPA TIENT VISIT, [facility], [address] [place] [address], [place], [address], [place] tel:[phone] [facility] Establish Care (chief complaint) AsthmaNicotine dependence, cigarettes, [...] Now here needing note to RTW at [facility] in [place]. Discussed with pt the need to be [...] the location of this Provider is at [address] The people participating in this Telemedicine [...] the location of this Provider is at [address] The people participating in this Telemedicine were the patient , myself, CLAIM ADJUSTER Alfa Diaz and my nursing staff. The [...] had started a new job at the [employer]. He states that he is working multiple [...] office. Patient states that he moved to [place] which is about half an hour from [...] would like to have this faxed to [facility]. 2 wk f/u Patient is F/U o [...] a couple weeks. CHECK UP Patient is [facility] primary care to Dr. Rea. He has been seen here int he past but has not been compliant with treatment and follow up.Patient was seen in this office few years ago and has been back in this area. He was diagnosed to have Bipolar disorder and has been hospitalized 2X at [facility]. At the time, he was using [...] Establish Care Recently moved [place] from [place]. Has moved around a lot. Is on [...] during the day.Would like to join the [employer], but does not have a high school diploma.Discussed how and where to earn [employer] today to get established. Hx of asthma, [...]
--- OUTSIDE RECORDS SUMMARY | 2024-08-20 16:33 | XMS_ITS | Clinical Summary ---
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
[2024-08-20] MEDS: IPRATROPIUM 0.5 MG/ALBUTEROL SULFATE 2.5 MG AMPUL.NEB 3 ML INHALATION (16:43)
[2024-08-20] MEDS: methylPREDNISolone SOD SUCC 125 MG VIAL IM (16:44)
--- OUTSIDE RECORDS SUMMARY | 2024-08-20 16:55 | XMS_ITS | Continuity of Care Document ---
Author Organization [facility] Address [address] [place] [address] Phone Care Team Providers Care Escalator Operator Name Role Phone Rubén Rea MD Unavailable [...] Diagnoses Date Provider Providers Copied on Encounter [facility], [address] [place] [address], [facility], tel: [phone] [facility] No Information 3 Álvaro Montana. [address] [place] [address], [address] [place] [address]. tel: [phone] [facility], [address] [place] [address], [facility], tel:[phone] [facility] No Information 2 Álvaro Montana. [address] [place] [address], [facility], . tel: [facility], [address] [place] [address], [facility], tel: [phone] [facility] No Information 2 Álvaro Montana. [address] [place] [address], [facility], . tel: [phone] [facility], [address] [place] [address], [facility], tel: [phone] [facility] No Information 1 Adolfoyasir Rubén. [address] [place] [address], [facility], . tel: [phone] PREV VISIT, EST, AGE 5-11 [facility], [address] [place] [address], [facility], tel: [phone] [facility] work note (chief complaint) Gastroenteritis Mood disorder 1 No Information PHONE E/M BY PHYS 11-20 MIN [facility], [address] [place] [address], [facility], tel: [phone] [facility] discuss medication (chief complaint) Mood disorder 1 Álvaro Montana. [address] [place] [address], [facility], . tel:[phone] PHONE E/M BY PHYS 11-20 MIN [facility], [address] [place] [address], [facility], tel: [phone] [facility] Medication follow up. (chief complaint) Mood disorder 3 0 Álvaro Montana. [address] [place] [address], [facility], . tel:[phone] OFFICE/OUTPA TIENT VISIT, [facility], [address] [place] [address], [facility], tel:[phone] [facility] 2 wk f/u (chief complaint) Mood disorder Jan- 0 Álvaro Montana. [address] [place] [address], [facility], . tel:[phone] OFFICE/OUTPA TIENT VISIT, [facility], [address] [place] [address], [facility], tel:[phone] [facility] F/U MED (chief complaint) Bipolar disorder, current episode mixed, mildMild asthma, unspecified whether complicated, unspecified whether persistentEncou nter for screening for cardiovascular disordersEncoun ter for screening for diabetes mellitus 0 Álvaro Montana. [address] [place] [address], [facility], . tel:[phone] [facility], [address] [place] [address], [facility], tel: [phone] [facility] No Information 0 Álvaro Montana. [address] [place] [address], [facility], . tel:[phone] OFFICE/OUTPA TIENT VISIT, [facility], [address] [place] [address], [facility], tel: [phone] [facility] 2 wk f/u (chief complaint) Bipolar disorder, current episode mixed, mild Feb- 0 Álvaro Montana. [address] [place] [address], [facility], [place]. tel:[phone] OFFICE/OUTPA TIENT VISIT, [facility], [address] [place] [address], [facility], tel:[phone] [facility] CHECK UP (chief complaint) Bipolar disorder, current episode mixed, mildMild asthma, unspecified whether complicated, unspecified whether persistentInsom nino, unspecified typeNicotine dependence, cigarettes, uncomplicatedDe ntal cariesHistory of methamphetamine abuse 0 Álvaro Montana. [address] [place] [address], [place], [address], [place]. [phone] OFFICE/OUTPA TIENT VISIT, [facility], [address] [place] [address], [place], [address], [place] tel:[phone] [facility] Establish Care (chief complaint) AsthmaNicotine dependence, [...] stroke Payers Payer name Insurance type Covered alliance party ID Authoriza tion(s) No Information Social History [...] Now here needing note to RTW at [facility] in [place]. Discussed with pt the need to be [...] location of this Provider is at [address] The people participating in this Telemedicine [...] location of this Provider is at [address]. The people participating in this Telemedicine were the patient , myself, ROCKBOARD LATHER Alfa Diaz and my nursing staff. The [...] had started a new job at the [employer]. He states that he is working multiple [...] office. Patient states that he moved to [place] which is about half an hour from [...] would like to have this faxed to [facility]. 2 wk f/u Patient is F/U [...] a couple weeks. CHECK UP Patient is [facility] primary care to Dr. Rea. He has been seen here int he past but has not been compliant with treatment and follow up.Patient was seen in this office few years ago and has been back in this area. He was diagnosed to have Bipolar disorder and has been hospitalized 2X at [facility]. At the time, he was using [...] Establish Care Recently moved [place] from [place]. Has moved around a lot. Is on [...] during the day.Would like to join the [employer], but does not have a high school diploma.Discussed how and where to earn [employer] today to get established. Hx of asthma, [...]
--- OUTSIDE RECORDS SUMMARY | 2024-08-20 16:55 | XMS_ITS | Clinical Summary ---
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
[2024-08-20 17:30] LABS: Influenza A QL RT-PCR Negative (Negative); Influenza B QL RT-PCR Negative (Negative); RSV RNA, RT-PCR Negative (Negative); SARS-CoV-2 RNA PCR Negative (Negative)
[2024-08-20 18:00] VITALS: BP 123/72; PULSE 72; RESP 18; O2SAT 100
== END 2024-08-20 18:00 | disposition home or self-care (01) ==
PROVIDERS: Emergency Provider Emergency Medicine; PCP Internal Medicine
DX: J45.901 Unspecified asthma with (acute) exacerbation (principal); Z59.00 Homelessness unspecified; Z87.891 Personal history of nicotine dependence; Z20.822 Contact with and (suspected) exposure to COVID-19
CPT/HCPCS: 71046; 87637; 96372; 99283; J2919

== ENCOUNTER 2024-10-19 03:57 | Emergency (ER) | payer OTHER, SELFPAY ==
[2024-10-19 03:58] VITALS: BP 136/96; PULSE 97; RESP 18; TEMP 36.1; O2SAT 97
--- OUTSIDE RECORDS SUMMARY | 2024-10-19 03:59 | XMS_ITS | Continuity of Care Document ---
Author Organization [facility] Address [address] [place] [address] Phone Care Team Providers Care Creosoting Engineer Name Role Phone Rubén Rea MD Unavailable [...] Diagnoses Date Provider Providers Copied on Encounter [facility], [address] [place] [address], [facility], tel: [phone] [facility] No Information 3 Álvaro Montana. [address] [place] [address], [address] [place] [address]. tel: [phone] [facility], [address] [place] [address], [facility], tel:[phone] [facility] No Information 2 Álvaro Montana. [address] [place] [address], [facility], . tel: [facility], [address] [place] [address], [facility], tel: [phone] [facility] No Information 2 Álvaro Montana. [address] [place] [address], [facility], . tel: [phone] [facility], [address] [place] [address], [facility], tel: [phone] [facility] No Information 1 Adolfoyasir Rubén. [address] [place] [address], [facility], . tel: [phone] PREV VISIT, EST, AGE 5-11 [facility], [address] [place] [address], [facility], tel: [phone] [facility] work note (chief complaint) Gastroenteritis Mood disorder 1 No Information PHONE E/M BY PHYS 11-20 MIN [facility], [address] [place] [address], [facility], tel: [phone] [facility] discuss medication (chief complaint) Mood disorder 1 Álvaro Montana. [address] [place] [address], [facility], . tel:[phone] PHONE E/M BY PHYS 11-20 MIN [facility], [address] [place] [address], [facility], tel: [phone] [facility] Medication follow up. (chief complaint) Mood disorder 3 0 Álvaro Montana. [address] [place] [address], [facility], . tel:[phone] OFFICE/OUTPA TIENT VISIT, [facility], [address] [place] [address], [facility], tel:[phone] [facility] 2 wk f/u (chief complaint) Mood disorder Jan- 0 Álvaro Montana. [address] [place] [address], [facility], . tel:[phone] OFFICE/OUTPA TIENT VISIT, [facility], [address] [place] [address], [facility], tel:[phone] [facility] F/U MED (chief complaint) Bipolar disorder, current episode mixed, mildMild asthma, unspecified whether complicated, unspecified whether persistentEncou nter for screening for cardiovascular disordersEncoun ter for screening for diabetes mellitus 0 Álvaro Montana. [address] [place] [address], [facility], . tel:[phone] [facility], [address] [place] [address], [facility], tel: [phone] [facility] No Information 0 Álvaro Montana. [address] [place] [address], [facility], . tel:[phone] OFFICE/OUTPA TIENT VISIT, [facility], [address] [place] [address], [facility], tel: [phone] [facility] 2 wk f/u (chief complaint) Bipolar disorder, current episode mixed, mild Feb- 0 Álvaro Montana. [address] [place] [address], [facility], [place]. tel:[phone] OFFICE/OUTPA TIENT VISIT, [facility], [address] [place] [address], [facility], tel:[phone] [facility] CHECK UP (chief complaint) Bipolar disorder, current episode mixed, mildMild asthma, unspecified whether complicated, unspecified whether persistentInsom nino, unspecified typeNicotine dependence, cigarettes, uncomplicatedDe ntal cariesHistory of methamphetamine abuse 0 Álvaro Montana. [address] [place] [address], [place], [address], [place]. [phone] OFFICE/OUTPA TIENT VISIT, [facility], [address] [place] [address], [place], [address], [place] tel:[phone] [facility] Establish Care (chief complaint) AsthmaNicotine dependence, [...] needing note to RTW at [facility] in [place]. Discussed with pt the need to be [...] the location of this Provider is at [address] The people participating in this Telemedicine [...] the location of this Provider is at [address] The people participating in this Telemedicine were the patient , myself, WREATH MAKER Alfa Diaz and my nursing staff. The [...] had started a new job at the [employer] He states that he is working multiple [...] office. Patient states that he moved to [place] which is about half an hour from [...] would like to have this faxed to [facility]. 2 wk f/u Patient is F/U o [...] a couple weeks. CHECK UP [facility] is [facility] primary care to Dr. Rea. He has been seen here int he past but has not been compliant with treatment and follow up.Patient was seen in this office few years ago and has been back in this area. He was diagnosed to have Bipolar disorder and has been hospitalized 2X at [facility]. At the time, he was using [...] during the day.Would like to join the [employer], but does not have a high school diploma.Discussed how and where to earn [employer] today to get established. Hx of asthma, now controlled, needs inhalers refilled Functional Status Date Functional Assessmen t No Information Instructions Date Instruction Additional Infor mg Advance diet as roberto carlos rated, RTW note given Related to Gastroenteritis Advised to continue with counseling, and see Dr. swain Related to Mood disorder Goal of treatment di scussed, observe for suicidal thoughts Related to Mood disorder Encouraged coping ac tivities, continue current regimen Related to Mood disorder Lab CBC CMP in one m ont recommended Related to Mood disorder Observe for medicati on side effect, Observe for worsening s/s Related to Mood disorder Goal of treatment [...] disorder, current episode mixed, mild Lamotrigine and [place] pro sent to pharmacy Related to Bipolar disorder, current episode mixed, mild Follow up in 2-3 weeks Related t o Bipolar disorder, current episode mixed, mild Benefit of exercise and weight management explained Related to Encounter for screening for cardiovascular disorders Avoid respiratory irritants Rela royal to Mild [...]
--- OUTSIDE RECORDS SUMMARY | 2024-10-19 04:04 | XMS_ITS | Continuity of Care Document ---
Author Organization [employer] Address [address] [place] [address] Phone Care Team Providers Care Corporate Representative Name Role Phone Rubén Rea MD Unavailable [...] Diagnoses Date Provider Providers Copied on Encounter [facility], [address] [place] [address], [facility], tel: [phone] [facility] No Information 3 Álvaro Montana. [address] [place] [address], [address] [place] [address]. tel: [phone] [facility], [address] [place] [address], [facility], tel:[phone] [facility] No Information 2 Álvaro Montana. [address] [place] [address], [facility], . tel: [facility], [address] [place] [address], [facility], tel: [phone] [facility] No Information 2 Álvaro Montana. [address] [place] [address], [facility], . tel: [phone] [facility], [address] [place] [address], [facility], tel: [phone] [facility] No Information 1 Adolfoyasir Rubén. [address] [place] [address], [facility], . tel: [phone] PREV VISIT, EST, AGE 5-11 [facility], [address] [place] [address], [facility], tel: [phone] [facility] work note (chief complaint) Gastroenteritis Mood disorder 1 No Information PHONE E/M BY PHYS 11-20 MIN [facility], [address] [place] [address], [facility], tel: [phone] [facility] discuss medication (chief complaint) Mood disorder 1 Álvaro Montana. [address] [place] [address], [facility], . tel:[phone] PHONE E/M BY PHYS 11-20 MIN [facility], [address] [place] [address], [facility], tel: [phone] [facility] Medication follow up. (chief complaint) Mood disorder 3 0 Álvaro Montana. [address] [place] [address], [facility], . tel:[phone] OFFICE/OUTPA TIENT VISIT, [facility], [address] [place] [address], [facility], tel:[phone] [facility] 2 wk f/u (chief complaint) Mood disorder Jan- 0 Álvaro Montana. [address] [place] [address], [facility], . tel:[phone] OFFICE/OUTPA TIENT VISIT, [facility], [address] [place] [address], [facility], tel:[phone] [facility] F/U MED (chief complaint) Bipolar disorder, current episode mixed, mildMild asthma, unspecified whether complicated, unspecified whether persistentEncou nter for screening for cardiovascular disordersEncoun ter for screening for diabetes mellitus 0 Álvaro Montana. [address] [place] [address], [facility], . tel:[phone] [facility], [address] [place] [address], [facility], tel: [phone] [facility] No Information 0 Álvaro Montana. [address] [place] [address], [facility], . tel:[phone] OFFICE/OUTPA TIENT VISIT, [facility], [address] [place] [address], [facility], tel: [phone] [facility] 2 wk f/u (chief complaint) Bipolar disorder, current episode mixed, mild Feb- 0 Álvaro Montana. [address] [place] [address], [facility], [place]. tel:[phone] OFFICE/OUTPA TIENT VISIT, [facility], [address] [place] [address], [facility], tel:[phone] [facility] CHECK UP (chief complaint) Bipolar disorder, current episode mixed, mildMild asthma, unspecified whether complicated, unspecified whether persistentInsom nino, unspecified typeNicotine dependence, cigarettes, uncomplicatedDe ntal cariesHistory of methamphetamine abuse 0 Álvaro Montana. [address] [place] [address], [place], [address], [place]. [phone] OFFICE/OUTPA TIENT VISIT, [facility], [address] [place] [address], [place], [address], [place] tel:[phone] [facility] Establish Care (chief complaint) AsthmaNicotine dependence, [...] Now here needing note to RTW at [facility] in [place]. Discussed with pt the need to be [...] the location of this Provider is at [address] The people participating in this Telemedicine [...] the location of this Provider is at [address]. The people participating in this Telemedicine were the patient , myself, CON[employer]IBLE [employer] BEDSPRING TESTER Alfa Diaz and my nursing staff. The [...] had started a new job at the [employer]. He states that he is working multiple [...] office. Patient states that he moved to [place] which is about half an hour from [...] would like to have this faxed to [facility]. 2 wk f/u Patient [...] a couple weeks. CHECK UP Patient is [facility] primary care to Dr. Rea. He has been seen here int he past but has not been compliant with treatment and follow up.Patient was seen in this office few years ago and has been back in this area. He was diagnosed to have Bipolar disorder and has been hospitalized 2X at [facility]. At the time, he was using [...] Establish Care Recently moved [place] from [place]. Has moved around a lot. Is on [...] during the day.Would like to join the [employer], but does not have a high school diploma.Discussed how and where to earn [employer] today to get established. Hx of asthma, [...] disorder, current episode mixed, mild Lamotrigine and [place] pro sent to pharmacy Related to Bipolar disorder, current episode mixed, mild Lamotrigine and [place] pro sent to pharmacy Related to Bipolar [...]
--- NOTE | 2024-10-19 04:05 | ED.GENADULT ---
HPI - General Adult General Chief complaint: Unspecified Stated complaint: medication refill Source: patient Mode of arrival: ambulatory Limitations: no limitations History of Present Illness HPI narrative: 29-year-old male history of asthma presents to the ED for -- Cough -- shortness of breath. he ran out of his medications which include Symbicort, albuterol nebulizer solution and albuterol inhaler. no fever or chills. Onset (ago): day(s) Relieving factors: none Exacerbating factors: none Associated symptoms: denies other symptoms Treatments prior to arrival: none Related Data Allergies Allergy/AdvReac Type Severity Reaction Status Date / Time ibuprofen AdvReac Nausea Verified 10/19/24 04:03 Review of Systems Review of Systems: All systems reviewed & are unremarkable except as noted in HPI and below Constitutional: Constitutional: Reports as per HPI and Reports no additional constitutional complaints Eyes: Eyes: Reports as per HPI and Reports no additional eye complaints ENT: Reports system reviewed and no additional complaints, except as documented and Reports as per HPI Cardiovascular: Cardiovascular: Reports as per HPI and Reports no additional cardiovascular complaints Respiratory: Respiratory: Reports as per HPI, Reports no additional respiratory complaints, Reports cough and Reports dyspnea Gastrointestinal: Gastrointestinal: Reports as per HPI and Reports no additional gastrointestinal complaints Genitourinary: Genitourinary: Reports no additional male genitourinary complaints and Reports as per HPI Musculoskeletal: Musculoskeletal: Reports no additional musculoskeletal complaints and Reports as per HPI Integumentary/Breasts: Skin/Breast: Reports system reviewed and no additional complaints, except as docu and Reports as per HPI Neurologic: Reports system reviewed and no additional complaints, except as documented and Reports as per HPI Psychiatric: Psychiatric: Reports no additional psychiatric complaints and Reports as per HPI Endocrine: Endocrine: Reports no additional endocrine complaints and Reports as per HPI Hematologic/Lymphatic: Hematologic/Lymphatic: Reports no additional hematologic/lymphatic complaints and Reports as per HPI Allergic/Immunologic: Allergic/Immunologic: Reports no additional allergic/immunologic complaints and Reports as per HPI PMFSH Past Medical History Medical History Asthma exacerbation Surgical History Surgical History No significant past surgical history Social History Social History Smoking status: Former smoker Alcohol intake: current Substance use: never Exam Narrative: Blood pressure is 136/96. Oxygen saturation of 97% on room air with a respiratory rate of 18. Const: General: cooperative, healthy appearing and no acute distress HENMT: Head: normal to inspection, normocephalic and atraumatic Ears: hearing grossly normal bilaterally and external ears normal Face/Nose/Sinus: Normal external nose present and Normal nares present Face and sinus: normal facial exam Mouth: Yes Normal oral and palatal mucosa present, Yes lip normal and Yes tongue normal Throat: posterior oropharynx normal and tonsils normal Eyes: General: appearance normal, both eyes and all related structures Neck: Neck: normal visual inspection, full ROM and no lymphadenopathy Chest: Chest palpation & inspection: normal inspection of the chest Resp: Effort & Inspection: normal respiratory effort Auscultation: clear to auscultation bilaterally Cardio: Palpation: normal PMI Rate: regular rate Rhythm: regular rhythm Heart sounds: S1 normal heart sound present and S2 normal heart sound present GI: Inspection: normal to inspection Auscultation: normal bowel sounds Other: No tenderness/rigidity / rebound. : General: Yes no CVA tenderness Back/Spine/Pelvis: Back: no CVA tenderness Skin: General skin exam: normal color and no rashes or lesions noted Neuro: General: oriented to person, oriented to place and oriented to time Extrem: General: normal to inspection, full ROM and capillary refill normal Psych: Appearance: grossly normal Mental Status: mental status grossly normal Course Course Emergency Course: Asthma-- evidence of bronchospasm. Patient wanted a breathing treatment. Vital Signs Vital signs: Vital Signs Temperature 36.1 C L 10/19/24 03:58 Pulse Rate 97 10/19/24 03:58 Respiratory Rate 18 10/19/24 03:58 Blood Pressure 136/96 H 10/19/24 03:58 Pulse Oximetry 97 10/19/24 03:58 Oxygen Delivery Room Air 10/19/24 03:58 Temperature 36.1 C L 10/19/24 03:58 Pulse Rate 97 10/19/24 03:58 Respiratory Rate 18 10/19/24 03:58 Blood Pressure 136/96 H 10/19/24 03:58 Pulse Oximetry 97 10/19/24 03:58 Oxygen Delivery Room Air 10/19/24 03:58 Medical Decision Making [facility] Narrative Medical decision making narrative: Asthma Vital Signs Vital Signs: Vital Signs Temperature 36.1 C L 10/19/24 03:58 Pulse Rate 97 10/19/24 03:58 Respiratory Rate 18 10/19/24 03:58 Blood Pressure 136/96 H 10/19/24 03:58 Pulse Oximetry 97 10/19/24 03:58 Oxygen Delivery Room Air 10/19/24 03:58 Temperature 36.1 C L 10/19/24 03:58 Pulse Rate 97 10/19/24 03:58 Respiratory Rate 18 10/19/24 03:58 Blood Pressure 136/96 H 10/19/24 03:58 Pulse Oximetry 97 10/19/24 03:58 Oxygen Delivery Room Air 10/19/24 03:58 Discharge Plan Discharge Clinical Impression: Asthma Qualifiers: Asthma severity: mild Asthma persistence: unspecified Asthma complication type: uncomplicated Qualified Code(s): J45.909 - Unspecified asthma, uncomplicated Patient Disposition: Home Condition: Stable Instructions: Antibiotic Form, Asthma (ED) Patient Language: Costa Rican Prescriptions: New budesonide-formoterol [Symbicort] 80-4.5 mcg/actuation HFA aerosol inhaler 2 puff inhalation Q12H Qty: 10.2 0RF albuterol sulfate 2.5 mg /3 mL (0.083 %) solution for nebulization 2.5 mg inhalation Q4H PRN (Reason: shortness of breath or wheezing) Qty: 90 0RF albuterol sulfate [Ventolin HFA] 90 mcg/actuation HFA aerosol inhaler 2 puff inhalation QID PRN (Reason: shortness of breath or wheezing) Qty: 8.5 0RF No Action albuterol sulfate [Ventolin HFA] 90 mcg/actuation HFA aerosol inhaler 2 puff inhalation QID PRN (Reason: shortness of breath or wheezing) Qty: 8.5 0RF budesonide-formoterol [Breyna] 80-4.5 mcg/actuation HFA aerosol inhaler 1 inh inhalation DAILY Qty: 10.2 0RF (DME) nebulizer and compressor Device See Rx Instructions .Route Qty: 1 0RF Rx Instructions: As directed albuterol sulfate 90 mcg/actuation HFA aerosol inhaler 2 inh inhalation Q4H PRN (Reason: shortness of breath or wheezing) Qty: 6.7 2RF albuterol sulfate 2.5 mg/0.5 mL solution for nebulization 5 mg inhalation QID PRN (Reason: shortness of breath or wheezing) Qty: 30 0RF budesonide-formoterol [Symbicort] 160-4.5 mcg/actuation HFA aerosol inhaler 1 inh inhalation DAILY Qty: 10.2 0RF prednisone 20 mg tablet 20 mg PO DAILY Qty: 4 0RF budesonide-formoterol [Symbicort] 80-4.5 mcg/actuation HFA aerosol inhaler 2 puff inhalation BID Qty: 10.2 0RF azithromycin 250 mg tablet See Rx Instructions .ROUTE .COMPLEX Qty: 6 0RF Rx Instructions: For 250 mg dose pack: take 500 mg today (day 1), then 250 mg for 4 days (days 2-5) Follow-up/Referrals: Jose Munoz DO [Primary Care Provider] - Time of Disposition: 04:20
[2024-10-19] MEDS: IPRATROPIUM 0.5 MG/ALBUTEROL SULFATE 2.5 MG AMPUL.NEB 3 ML INHALATION (04:14)
== END 2024-10-19 04:25 | disposition home or self-care (01) ==
PROVIDERS: Emergency Provider Internal Medicine Critical Care Medicine; PCP Family Medicine
DX: J45.909 Unspecified asthma, uncomplicated (principal); Z87.891 Personal history of nicotine dependence
CPT/HCPCS: 99283

== ENCOUNTER 2024-11-01 11:22 | Outpatient (CLI) | payer OTHER, SELFPAY ==
[2024-11-01 11:37] LABS: Basophils Absolute Auto 0.07 K/mm3 (0.00-0.10); Basophils Percent Auto 0.8 % (0.0-1.0); Eosinophils Absolute Auto 0.59 K/mm3 (0.02-0.50); Hematocrit 48.7 % (40.0-54.0); Hemoglobin 16.4 g/dL (14.0-18.0); Immature Granulocyte Absolute 0.05 K/mm3 (0.00-0.00); Immature Granulocyte Percent A 0.6 % (0.0-0.0); Lymphocytes Absolute Auto 2.13 K/mm3 (1.10-4.50); Lymphocytes Percent Auto 25.4 % (18.0-42.0); Mean Corpuscular HGB Conc 33.7 g/dL (32-36); Mean Corpuscular Hemoglobin 27.8 pg (27.0-31.0); Mean Corpuscular Volume 82.7 fL (78.0-102.0); Mean Platelet Volume 9.4 fl (8.7-11.0); Monocytes Absolute Auto 0.66 K/mm3 (0.10-0.90); Monocytes Percent Auto 7.9 % (2.0-11.0); Neutrophils Absolute Auto 4.88 K/mm3 (1.70-7.20); Neutrophils Percent Auto 58.3 % (50.0-70.0); Platelet Count Result 296 K/mm3 (150-420); Red Blood Count 5.89 M/mm3 (4.70-6.10); Red Cell Distribution Width 14.9 % (11.6-14.4); White Blood Count 8.4 K/mm3 (4.8-10.8)
[2024-11-01 12:15] LABS: Alanine Aminotransferase 29 U/L (6-50); Albumin Level 4.8 g/dL (3.5-5.1); Alkaline Phosphatase 98 U/L (38-126); Anion Gap 7 mmol/L (4-12); Aspartate Amino Transferase 31 U/L (17-59); Blood Urea Nitrogen 9 mg/dL (9-20); Calcium 9.8 mg/dL (8.4-10.2); Carbon Dioxide 27 mmol/L (22-30); Chloride 106 mmol/L (98-107); Estimated Glomerular Filt Rate > 60; Glucose 92 mg/dL (65-110); Osmolality Calculated 288 mOsm/kg (285-295); Potassium 4.2 mmol/L (3.4-5.0); Sodium 140 mmol/L (137-145); Total Protein 7.7 g/dL (6.3-8.2)
--- OUTSIDE RECORDS SUMMARY | 2024-11-01 13:12 | XMS_ITS | Continuity of Care Document ---
Author Organization [employer] Address [address] [place] [address] Phone Care Team Providers Care Airline Security Representative Name Role Phone Rubén Rea MD [...] Diagnoses Date Provider Providers Copied on Encounter [facility], [address] [place] [address], [facility], tel: [phone] [facility] No Information 3 Álvaro Montana. [address] [place] [address], [address] [place] [address]. tel: [phone] [facility], [address] [place] [address], [facility], tel:[phone] [facility] No Information 2 Álvaro Montana. [address] [place] [address], [facility], . tel: [facility], [address] [place] [address], [facility], tel: [phone] [facility] No Information 2 Álvaro Montana. [address] [place] [address], [facility], . tel: [phone] [facility], [address] [place] [address], [facility], tel: [phone] [facility] No Information 1 Adolfoyasir Rubén. [address] [place] [address], [facility], . tel: [phone] PREV VISIT, EST, AGE 5-11 [facility], [address] [place] [address], [facility], tel: [phone] [facility] work note (chief complaint) Gastroenteritis Mood disorder 1 No Information PHONE E/M BY PHYS 11-20 MIN [facility], [address] [place] [address], [facility], tel: [phone] [facility] discuss medication (chief complaint) Mood disorder 1 Álvaro Montana. [address] [place] [address], [facility], . tel:[phone] PHONE E/M BY PHYS 11-20 MIN [facility], [address] [place] [address], [facility], tel: [phone] [facility] Medication follow up. (chief complaint) Mood disorder 3 0 Álvaro Montana. [address] [place] [address], [facility], . tel:[phone] OFFICE/OUTPA TIENT VISIT, [facility], [address] [place] [address], [facility], tel:[phone] [facility] 2 wk f/u (chief complaint) Mood disorder Jan- 0 Álvaro Montana. [address] [place] [address], [facility], . tel:[phone] OFFICE/OUTPA TIENT VISIT, [facility], [address] [place] [address], [facility], tel:[phone] [facility] F/U MED (chief complaint) Bipolar disorder, current episode mixed, mildMild asthma, unspecified whether complicated, unspecified whether persistentEncou nter for screening for cardiovascular disordersEncoun ter for screening for diabetes mellitus 0 Álvaro Montana. [address] [place] [address], [facility], . tel:[phone] [facility], [address] [place] [address], [facility], tel: [phone] [facility] No Information 0 Álvaro Montana. [address] [place] [address], [facility], . tel:[phone] OFFICE/OUTPA TIENT VISIT, [facility], [address] [place] [address], [facility], tel: [phone] [facility] 2 wk f/u (chief complaint) Bipolar disorder, current episode mixed, mild Feb- 0 Álvaro Montana. [address] [place] [address], [facility], [place]. tel:[phone] OFFICE/OUTPA TIENT VISIT, [facility], [address] [place] [address], [facility], tel:[phone] [facility] CHECK UP (chief complaint) Bipolar disorder, current episode mixed, mildMild asthma, unspecified whether complicated, unspecified whether persistentInsom nino, unspecified typeNicotine dependence, cigarettes, uncomplicatedDe ntal cariesHistory of methamphetamine abuse 0 Álvaro Montana. [address] [place] [address], [place], [address], [place]. [phone] OFFICE/OUTPA TIENT VISIT, [facility], [address] [place] [address], [place], [address], [place] tel:[phone] [facility] Establish Care (chief complaint) AsthmaNicotine dependence, cigarettes, [...] stroke Payers Payer name Insurance type Covered constitution party ID Authoriza tion(s) No Information Social [...] needing note to RTW at [facility] in [place]. Discussed with pt the need to be [...] the location of this Provider is at [address] The people participating in this Telemedicine [...] the location of this Provider is at [address] The people participating in this Telemedicine were the patient , myself, ROTARY HELPER Alfa Diaz and my nursing staff. The [...] had started a new job at the [employer]. He states that he is working multiple [...] office. Patient states that he moved to [place] which is about half an hour from [...] would like to have this faxed to [facility]. 2 wk f/u Patient is F/U [...] a couple weeks. CHECK UP Patient is [facility] primary care to Dr. Rea. He has been seen here int he past but has not been compliant with treatment and follow up.Patient was seen in this office few years ago and has been back in this area. He was diagnosed to have Bipolar disorder and has been hospitalized 2X at [facility]. At the time, he was using [...] Establish Care Recently moved [place] from [place]. Has moved around a lot. Is on [...] during the day.Would like to join the [employer], but does not have a high school diploma.Discussed how and where to earn [employer] today to get established. Hx of asthma, [...] disorder, current episode mixed, mild Lamotrigine and Tha[place] pro sent to pharmacy Related to Bipolar [...]
== END 2024-11-01 11:23 | disposition home or self-care (01) ==
LOC: CHSLAB 11:23
PROVIDERS: PCP Family Medicine; Visit Provider Family Medicine
DX: J45.50 Severe persistent asthma, uncomplicated (principal)
CPT/HCPCS: 36415; 80053; 85025